=== PATIENT | female | born 1955 | race Caucasian/White ===

== ENCOUNTER → 2019-02-22 | Outpatient (CLI) | payer BC ==
--- NOTE | 2019-02-22 21:25 | Diagnostic Imaging Report ---
INDICATION: Rash in left periareolar region. COMPARISON: Correlation is made with prior mammograms from 03/01/2018 and 11/03/2016. EXAMINATION: 2D and 3D bilateral diagnostic mammography was performed. FINDINGS: Scattered fibroglandular densities are identified, bilaterally. Biopsy clips are noted in both breasts. The parenchymal pattern is stable. No mass or malignant appearing microcalcifications are seen. There are benign calcifications. Axillae are unremarkable IMPRESSION: No mammographic features suspicious for malignancy. Even so, sonographic interrogation of the area of rash in the left breast periareolar region is recommended an will be performed today. ACR BI-RADS Category 0: Incomplete. (Needs additional imaging evaluation). Result letter will be mailed to the patient. Note: At least 10% of breast cancer is not imaged by mammography. Dictated by: Dictated on workstation # [id number]
--- NOTE | 2019-02-22 21:37 | Diagnostic Imaging Report ---
INDICATION: Rash and itching in the periareolar left breast. EXAMINATION: Sonographic interrogation of the area of redness was performed. FINDINGS: No sonographic abnormality is seen. No solid or cystic mass is detected. IMPRESSION: No sonographic abnormality is identified. ACR BI-RADS Category 1: Negative. Result letter will be mailed to the patient. Note: At least 10% of breast cancer is not imaged by mammography. Dictated by: Dictated on workstation # [id number]
== END ==
LOC: RAD 13:24
PROVIDERS: ATTEND Nurse Practitioner Family
DX: L29.9 Pruritus, unspecified (principal); R21 Rash and other nonspecific skin eruption; N64.4 Mastodynia
CPT/HCPCS: 76642; 77066

== ENCOUNTER → 2022-02-25 | Outpatient (CLI) | payer BC, MEDICARE ==
--- NOTE | 2022-02-25 22:17 | Diagnostic Imaging Report ---
INDICATION: Routine screening. COMPARISON: Prior mammogram from 02/22/2019 and 03/01/2018. EXAMINATION: 2D and 3D bilateral screening mammography was performed with CAD. FINDINGS: Scattered fibroglandular densities are identified, bilaterally. A nodular density in the upper outer right breast appears increased in size when compared with prior exams. Biopsy clip in outer left breast is noted. There are benign calcifications, bilaterally. Axillae are unremarkable. IMPRESSION: Enlarging nodule in the upper outer right breast at mid to posterior depth. Additional views are recommended for further evaluation. ACR BI-RADS Category 0: Incomplete. (Needs additional imaging evaluation). Result letter will be mailed to the patient. Note: At least 10% of breast cancer is not imaged by mammography. Dictated by: Dictated on workstation # [id number]
== END ==
LOC: RAD 11:00
PROVIDERS: ATTEND Nurse Practitioner Family
DX: Z12.31 Encounter for screening mammogram for malignant neoplasm of breast (principal); N63.11 Unspecified lump in the right breast, upper outer quadrant
CPT/HCPCS: 77063; 77067

== ENCOUNTER → 2022-03-02 | Outpatient (CLI) | payer MEDICARE ==
--- NOTE | 2022-03-02 13:12 | Diagnostic Imaging Report ---
INDICATION: Right breast density. COMPARISON: Correlation is made to the diagnostic mammogram from earlier this same day and screening mammogram from 02/25/2022. FINDINGS: Sonographic interrogation of the upper outer right breast was performed. There are two cysts in the upper outer right breast, each measuring 5 to 6 mm in size. One cyst is 14 cm from the nipple and likely accounts for the mammographic density. There is also a cyst approximately 10 cm from the nipple. No solid mass is detected. IMPRESSION: Simple cyst in the upper outer right breast, likely accounting for the mammographic density. The patient may return to routine annual screening mammography. ACR BI-RADS Category 2: Benign findings. Result letter will be mailed to the patient. Note: At least 10% of breast cancer is not imaged by mammography. Dictated by: Dictated on workstation # [id number]
--- NOTE | 2022-03-02 16:33 | Diagnostic Imaging Report ---
INDICATION: Right breast density. Patient presents for additional views. COMPARISON: Correlation is made with the screening study from 02/25/2022. TECHNIQUE: Unilateral right 2D and 3D diagnostic mammography was performed. This includes spot compression CC and ML views as well as conventional 90 degree lateral views. FINDINGS: There is a persistent nodular density in the upper outer right breast at posterior depth approximately 15 cm from the nipple. This may represent a cyst or lymph node. Further evaluation with ultrasound is recommended. IMPRESSION: Persistent nodular density in the upper outer right breast at posterior depth. Further evaluation with ultrasound is recommended and will be performed today. ACR BI-RADS Category 0: Incomplete. (Needs additional imaging evaluation). Result letter will be mailed to the patient. Note: At least 10% of breast cancer is not imaged by mammography. Dictated by: Dictated on workstation # [id number]
== END ==
LOC: RAD 12:45
PROVIDERS: ATTEND Nurse Practitioner Family
DX: N60.01 Solitary cyst of right breast (principal)
CPT/HCPCS: 76642; 77065; G0279

== ENCOUNTER 2023-06-09 17:01 | Observation (INO) | payer MEDICARE ==
[~2023-06-09] VITALS: Ht 154 cm; Wt 141.0 kg
[2023-06-09] MEDS ORDERED: ORPHENADRINE 60 MG/2 ML (NORFLEX) AMP (ED ONLY) IVP STA (17:09)
[2023-06-09] MEDS ORDERED: KETOROLAC INJ 30 MG/ML VIAL IVP STA (17:09)
[2023-06-09] MEDS ORDERED: fentaNYL INJECTION 100 MCG/2 ML VIAL IVP STA (17:09)
--- NOTE | 2023-06-09 17:25 | ED Back Pain ---
General Chief Complaint: Back Problems Stated Complaint: R LOWER BACK PAIN Source of Information: Patient History of Present Illness Date Seen by Provider: Jun 09, 2023 Time Seen by Provider: 17:01 Initial Comments 67-year-old female presenting with complaints of severe low back pain radiating to her right leg. She has had this for at least the last 1 to 2 weeks. She had been seen last week in the clinic and they gave her steroid shot. She felt like the pain has been worse since Wednesday. She had bent over in the bathroom this weekend and that seemed to trigger her pain and has been worse ever since. She has a prescription for hydrocodone that they just gave her today. She took 1 of those approximately an hour prior to arrival. She denies any loss of bowel or bladder control. She feels like her low back pain is better if she has her right leg up. She has been mainly sitting in the recliner at home so that her leg is elevated. She denies any direct trauma or fall to make her back pain started. She has no allergies to medications. She states that she does not take any chronic medications. Location: Lumbar Spine Timing/Duration: 1 Week (More than a week of increasing pain) Severity: Severe Pain/Injury Location: Back, Lower Extremity (Right lower extremity) Radiation: Upper Legs (Right side down to her knee) Method of Injury: Unknown Modifying Factors: Worse With Movement Associated Symptoms: muscle spasms; No fever, No weakness, No numbness in legs/feet, No tingling in legs/feet, No sensory/motor loss; lower back pain; No loss of bladder control, No loss of bowel control Allergies and Home Medications Allergies Coded Allergies: No Known Drug Allergies (Unverified , 06/09/23) Patient Home Medication List Home Medication List Reviewed: Yes Review of Systems Constitutional: No chills, No diaphoresis, No fever EENTM: no symptoms reported Respiratory: no symptoms reported Cardiovascular: no symptoms reported Gastrointestinal: no symptoms reported Genitourinary: no symptoms reported Musculoskeletal: see HPI Skin: No change in color, No rash Psychiatric/Neurological: Denies Numbness, Denies Paresthesia Past Aqcgtnv-Tksqiu-Eayceo Hx Patient Social History Tobacco Use?: No Use of E-Cig and/or Vaping dev: No Substance use?: No Alcohol Use?: No Pt feels they are or have been: No Physical Exam Vital Signs Vital Signs - First Documented 8/9/23 17:15 Temp 36.6 Pulse 72 Resp 16 B/P (MAP) 133/75 (94) Pulse Ox 99 O2 Delivery Room Air Capillary Refill : Height, Weight, BMI Height: '" Weight: lbs. oz. 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 Norm as Tested Skin: Normal Color, Warm/Dry Progress/Results/Core Measures Results/Orders My Orders Orders - NARINDER AGUILAR MD Orphenadrine Inj (Ed Only) (Norflex Inje (06/09/23 17:09) Fentanyl Injection (Fentanyl Injection (06/09/23 17:09) Ketorolac Injection (Ketorolac Injection (06/09/23 17:09) Ct Lumbar Spine Wo (06/09/23 17:10) Ct Pelvis Wo (06/09/23 17:10) Hydromorphone Injection (Hydromorphone (06/09/23 17:51) Ed Admission (Communication) (06/09/23 18:44) Vital Signs/I&O 06/09/23 17:15 Temp 36.6 Pulse 72 Resp 16 B/P (MAP) 133/75 (94) Pulse Ox 99 O2 Delivery Room Air Progress Progress Note #1: Progress Note Potential diagnosis of sciatica, compression fracture, bulging disc, exacerbation of low back pain. Obtain CT scan of the lumbar spine and pelvis to look for acute bony abnormality. Patient has an MRI scheduled for later this month. In terms of pain try to establish a peripheral IV access and administer fentanyl 50 mcg IV x 1 for pain, Toradol 30 mg IV for pain and inflammation, Norflex 60 mg IV for muscle spasms. Progress Note #2: Time: 18:00 Progress Note Patient still complaining of pain so given Dilaudid 0.[address] scans reviewed from radiologist and they did not see any acute bony abnormality. Possibly some neuroforaminal stenosis L4-5 and L5-S1. She felt the pain was so severe that she could not get up and move around and could not go home. Will check with her doctor, Lala Noel about possible admit. [address] Noel and she states she does not do admissions any more so requested I call hospitalist. [address] Minaya as the hospitalist to admit for Dr. NOEL. I reviewed with there is a patient presentation with increasing severe low back pain with radiculopathy down the right leg since this weekend but initially started 7 to 10 days ago. She had no acute bony abnormality on the CT imaging of her lumbar or pelvic area. She was still having severe pain despite multiple doses of medication and felt that she could not walk her get around at home. She was able to stand to do a transfer from the bed to the wheelchair but was continued to have pain. It did seem to be better after getting a dose of Dilaudid. Will admit as an observation patient for her severe back pain. Diagnostic Imaging Diagonstic Imaging: CT Plain Films/CT/US/NM/MRI: pelvis Comments NAME: ROMEL PERR[facility] REC#: [id number] PT STATUS: REG ER : 1955 PHYSICIAN: NARINDER AGUILAR MD ADMIT DATE: 06/09/23/ER FS Draft Date of Exam:06/09/23 CT PELVIS WO PROCEDURE: CT pelvis without contrast. TECHNIQUE: Multiple contiguous axial images were obtained through the pelvis without the use of intravenous contrast. Sagittal and coronal reformations were performed. Auto Exposure Controls were utilized during the CT exam to meet ALARA standards for radiation dose reduction. INDICATION: Right pelvic pain and radiculopathy. COMPARISON: None. FINDINGS: Mild degenerative changes in both hips. No fracture or malalignment. No fluid collection or contusion. No acute findings in the visualized pelvic contents. IMPRESSION: No acute CT findings in the pelvis. Dictated on workstation # [id number] Dict: 06/09/231742 Trans: 06/09/231748 [facility] [id number] Interpreted by: CAM MANRIQUEZ MD Electronically signed by: Reviewed: Reviewed by Me Diagonstic Imaging: CT Plain Films/CT/US/NM/MRI: other (Lumbar spine) Comments [facility] [place], [place] NAME: ROMEL PERRY [facility] REC#: [id number] PT STATUS: REG ER : 1955 PHYSICIAN: NARINDER AGUILAR MD ADMIT DATE: 06/09/23/ER FS Draft Date of Exam:06/09/23 CT LUMBAR SPINE WO EXAMINATION: CT lumbar spine without contrast. TECHNIQUE: Multiple contiguous axial images were obtained through the lumbar spine without the use of intravenous contrast. Sagittal and coronal reformations were then performed. All CT scans use one or more of the following dose optimizing techniques: automated exposure control, MA and/or KvP adjustment based on patient size and exam type or iterative reconstruction. HISTORY: Right sided pain with radiculopathy right leg COMPARISON: None available. FINDINGS: The alignment of the lumbar spine is normal. Vertebral body heights are normal and no fracture is seen. There is multilevel facet hypertrophy. Disc heights are normal. There is mild multilevel lumbar spondylosis. There may be some neuroforaminal stenosis at L4-L5 and L5-S1, bilaterally. Evaluation of the central canal and neuroforamina are suboptimal on a noncontrast CT. Limited views of the abdomen and pelvis show no soft tissue abnormality. The aorta is normal. IMPRESSION: Degenerative changes of the lumbar spine without acute osseous abnormality. Dictated on workstation # [id number] Dict: 06/09/23 1741 Trans: 06/09/23 1748 [facility] [id number] Interpreted by: ANEL DORADO DO Electronically signed by: Reviewed: Reviewed by Me Departure Communication (Admissions) Time/Spoke to Admitting Phy: 18:[address] Minaya as the hospitalist to admit for Dr. NOEL. I reviewed with there is a patient presentation with increasing severe low back pain with radiculopathy down the right leg since this weekend but initially started 7 to 10 days ago. She had no acute bony abnormality on the CT imaging of her lumbar or pelvic area. She was still having severe pain despite multiple doses of medication and felt that she could not walk her get around at home. She was able to stand to do a transfer from the bed to the wheelchair but was continued to have pain. It did seem to be better after getting a dose of Dilaudid. Will admit as an observation patient for her severe back pain. Impression Primary Impression: Acute low back pain with right-sided sciatica Qualified Codes: M54.41 - Lumbago with sciatica, right side Additional Impressions: Lumbar back pain with radiculopathy affecting right lower extremity Degenerative disc disease, lumbar Disposition: 30 STILL A PATIENT Condition: Stable Admissions Decision to Admit Reason: Admit from ER (General) Decision to Admit/Date: Jun 09, 2023 Time/Decision to Admit Time: 18:30 Departure-Patient Inst. Referrals: LALA NOEL MD (PCP/Family) Primary Care Physician NARINDER AGUILAR MD Jun 09, 2023 17:25
--- NOTE | 2023-06-09 17:48 | Diagnostic Imaging Report ---
EXAMINATION: CT lumbar spine without contrast. TECHNIQUE: Multiple contiguous axial images were obtained through the lumbar spine without the use of intravenous contrast. Sagittal and coronal reformations were then performed. All CT scans use one or more of the following dose optimizing techniques: automated exposure control, MA and/or KvP adjustment based on patient size and exam type or iterative reconstruction. HISTORY: Right sided pain with radiculopathy right leg COMPARISON: None available. FINDINGS: The alignment of the lumbar spine is normal. Vertebral body heights are normal and no fracture is seen. There is multilevel facet hypertrophy. Disc heights are normal. There is mild multilevel lumbar spondylosis. There may be some neuroforaminal stenosis at L4-L5 and L5-S1, bilaterally. Evaluation of the central canal and neuroforamina are suboptimal on a noncontrast CT. Limited views of the abdomen and pelvis show no soft tissue abnormality. The aorta is normal. IMPRESSION: Degenerative changes of the lumbar spine without acute osseous abnormality. Dictated by: Dictated on workstation # [id number]
--- NOTE | 2023-06-09 17:50 | Diagnostic Imaging Report ---
PROCEDURE: CT pelvis without contrast. TECHNIQUE: Multiple contiguous axial images were obtained through the pelvis without the use of intravenous contrast. Sagittal and coronal reformations were performed. Auto Exposure Controls were utilized during the CT exam to meet ALARA standards for radiation dose reduction. INDICATION: Right pelvic pain and radiculopathy. COMPARISON: None. FINDINGS: Mild degenerative changes in both hips. No fracture or malalignment. No fluid collection or contusion. No acute findings in the visualized pelvic contents. IMPRESSION: No acute CT findings in the pelvis. Dictated by: Dictated on workstation # [id number]
[2023-06-09] MEDS ORDERED: HYDROmorphone INJECTION 2 MG/ML VIAL IV STA (17:51)
[2023-06-09 20:03] VITALS: BP 147/70
[2023-06-09 20:15] VITALS: BP 147/70
[2023-06-09] MEDS ORDERED: ONDANSETRON 4 MG (ZOFRAN) ORAL DISSOLVE TAB PO PRN (20:15)
[2023-06-09] MEDS ORDERED: ANTACID SUSPENSION 30 ML UDC PO PRN (20:15)
[2023-06-09] MEDS ORDERED: MELATONIN 3 MG TABLET PO PRN (20:15)
[2023-06-09] MEDS ORDERED: BISACODYL 10 MG SUPPOSITORY PR PRN (20:15)
[2023-06-09] MEDS ORDERED: diphenhydrAMINE INJ 50 MG/ML VIAL IVP PRN (20:15)
[2023-06-09] MEDS ORDERED: polyethylene glycoL POWDER 17 GM (MIRALAX) PACK PO PRN (20:15)
[2023-06-09] MEDS ORDERED: diphenhydrAMINE 25 MG TABLET PO PRN (20:15)
[2023-06-09] MEDS ORDERED: KETOROLAC INJ 30 MG/ML VIAL IVP PRN (20:15)
[2023-06-09] MEDS ORDERED: ONDANSETRON 4 MG/2 ML (SDV) Z0FRAN IV PRN (20:15)
[2023-06-09] MEDS ORDERED: ACETAMINOPHEN 325 MG TABLET PO PRN (20:15)
[2023-06-09] MEDS ORDERED: LACTULOSE SYRUP 10GM/15ML 30ML UDC PO PRN (20:15)
[2023-06-09] MEDS ORDERED: CYCLOBENZAPRINE 10 MG TABLET PO PRN (20:15)
[2023-06-09] MEDS ORDERED: RT-Ipratropium/Albuterol NEB 3 ML VIAL INH PRN (20:30)
[2023-06-09] MEDS: DOCUSATE SODIUM 100 MG CAPSULE PO SCH (21:54)
[2023-06-09] MEDS: HYDROmorphone INJECTION 2 MG/ML VIAL IV PRN (22:00)
[2023-06-09] MEDS: dexAMETHasone INJ 4 MG/ML SDV IV SCH (22:00)
[2023-06-09] MEDS: oxyCODONE IMMEDIATE RELEASE 5 MG TABLET PO PRN (22:01)
[2023-06-09 23:43] VITALS: BP 156/81
[2023-06-10] VITALS (7 sets, daily range): BP systolic 130–180; BP diastolic 62–92
[2023-06-10] MEDS: HYDROmorphone INJECTION 2 MG/ML VIAL IV PRN ×2 (02:52→07:06)
[2023-06-10] MEDS: oxyCODONE IMMEDIATE RELEASE 5 MG TABLET PO PRN ×2 (02:52→07:05)
--- NOTE | 2023-06-10 05:55 | History & Physical ---
History of Present Illness HPI/Chief Complaint Chief complaint: Intractable lumbar radiculopathy unable to ambulate HPI: This is a 67-year-old female clinic patient of Dr. Noel who has a past medical history of low back pain who presented from [facility] due to intractable right-sided lumbar spine radiculopathy pain unable to ambulate in such severe pain she could no longer manage at home. She has been placed on multiple rounds of steroids and narcotics without resolution. She was planning on getting MRI done next week. Currently she is doing much better after IV steroids and muscle relaxants and narcotics. Source: patient Exam Limitations: no limitations Date Seen 06/10/23 Time Seen by a Provider: 11:00 Attending Physician Veena Noel MD PCP Admitting Physician: Viry Minaya DO Attending Physician: Viry Minaya DO Referring Physician Date of Admission Jun 09, 2023 at 20:00 Home Medications & Allergies Home Medications Reviewed patient Home Medication Reconciliation performed by pharmacy medication reconciliations tax technician and/or nursing. Patients Allergies have been reviewed. Allergies Allergies Coded Allergies No Known Drug Allergies (Unverified06/09/23) Past Cauormo-Alflyk-Oslsap Hx Past Med/Social Hx: Reviewed Nursing Past Med/Soc Hx, Reviewed and Corrections made Patient Social History Marrital Status: Employed/Student: retired Alcohol Use: Denies Use Smoking Status: Never a Smoker Past Medical History Musculoskeletal: Chronic Back Pain Review of Systems Constitutional: see HPI, malaise, weakness Gastrointestinal: constipation Musculoskeletal: back pain, muscle cramps, muscle weakness Physical Exam Physical Exam Vital Signs Vital Signs - First Documented 06/09/23 17:15 Temp 36.6 Pulse 72 Resp 16 B/P (MAP) 133/75 (94) Pulse Ox 99 O2 Delivery Room Air Capillary Refill : Less Than 3 Seconds Height, Weight, BMI Height: '" Weight: lbs. oz. 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 Assessment/Plan Admission Diagnosis Assessment: Intractable back pain with right-sided lumbar radiculopathy Constipation Unable to ambulate Morbid obesity BMI 59 Plan: IV steroids Muscle relaxants Narcotics PT OT Admission Status: Observation VIRY MINAYA DO Jun 10, 2023 05:55
[2023-06-10 06:23] LABS: BASOPHILS % (AUTO) 0 % (0-10); EOSINOPHILS % (AUTO) 0 % (0-10); HEMATOCRIT 44 % (35-52); HEMOGLOBIN 14.3 g/dL (11.5-16.0); LYMPHOCYTES # (AUTO) 0.7 10^3/uL (1.0-4.0); LYMPHOCYTES % (AUTO) 7 % (12-44); MEAN CORPUSCULAR HEMOGLOBIN 30 pg (25-34); MEAN CORPUSCULAR HGB CONC 32 g/dL (32-36); MEAN CORPUSCULAR VOLUME 93 fL (80-99); MONOCYTES # (AUTO) 0.1 10^3/uL (0.0-1.0); MONOCYTES % (AUTO) 1 % (0-12); NEUTROPHILS # (AUTO) 8.3 10^3/uL (1.8-7.8); NEUTROPHILS % (AUTO) 91 % (42-75); PLATELET COUNT 287 10^3/uL (130-400); WHITE BLOOD COUNT 9.1 10^3/uL (4.3-11.0)
[2023-06-10 06:36] LABS: BILIRUBIN,TOTAL 0.4 MG/DL (0.1-1.0); CALCIUM 9.4 MG/DL (8.5-10.1); CREATININE SERUM 0.83 MG/DL (0.60-1.30); POTASSIUM 4.6 MMOL/L (3.6-5.0); TOTAL PROTEIN 7.1 GM/DL (6.4-8.2)
[2023-06-10 06:40] LABS: BAND NEUTROPHILS 0 %; EOSINOPHILS % (MANUAL) 0 %; LYMPHOCYTES % (MANUAL) 8 %; MONOCYTES % (MANUAL) 0 %; NEUTROPHILS % (MANUAL) 92 %; RBC MORPH NORMAL
[2023-06-10] MEDS: dexAMETHasone INJ 4 MG/ML SDV IV SCH ×2 (09:07→20:03)
[2023-06-10] MEDS: DOCUSATE SODIUM 100 MG CAPSULE PO SCH ×2 (09:07→20:03)
[2023-06-10] MEDS: ENOXAPARIN 60 MG/0.6 ML SYRINGE SC SCH ×2 (09:08→20:03)
--- NOTE | 2023-06-10 11:51 | Physical Therapy Evaluation ---
PT Evaluation-General Medical Diagnosis Admission Date Jun 09, 2023 at 20:00 Medical Diagnosis: back pain with right LE sciatica Onset Date: Jun 09, 2023 Therapy Diagnosis Therapy Diagnosis: debility Precautions Precautions/Isolations: Standard Precautions Weight Bear Status Right Lower Extremity: Right Weight Bearing/Tolerated Left Lower Extremity: Left Weight Bearing/Tolerated Referral Physician: Rei Reason for Referral: Evaluation/Treatment Medical History Current History ER secondary to back pain 7-10 days Reviewed History: Yes Social History Home: Single Level Current Living Status: Spouse Prior Prior Level of Function SCALE: Activities may be completed with or without assistive devices. 9-Gyvnusmgjg-czeswwj completes the activity by him/herself with no assistance from a helper. 5-Set-up or Clean-up Assistance-helper sets up or cleans up; patient completes activity. [place] assists only prior to or following the activity. 4-Supervision or Touching Assistance-helper provides verbal cues and/or touching/steadying and/or contact guard assistance as patient completes activity. Assistance may be provided throughout the activity or intermittently. 3-Partial/Moderate Assistance-helper does LESS THAN HALF the effort. [place] lifts, holds or supports trunk or limbs, but provides less than half the effort. 2-Substantial/Maximal Assistance-helper does MORE THAN HALF the effort. [place] lifts or holds trunk or limbs and provides more than half the effort. 6-Xxqixktic-ctxorp does ALL the effort. Patient does none of the effort to complete the activity. Or, the assistance of 2 or more helpers is required for the patient to complete the activity. If activity was not attempted, code reason: 7-Patient Refused. 9-Not Applicable-not attempted and the patient did not perform the activity before the current illness, exacerbation or injury. 10-Not Attempted due to Environmental Limitations-(lack of equipment, weather restraints, etc.). 88-Not Attempted due to Medical Conditions or Safety Concerns. Bed Mobility: 6 Transfers (B,C,W/C): 6 Gait: 6 Indoor Mobility (Ambulation): Independent Prior Devices Use: None PT Evaluation-Current Subjective Patient denies back pain and right LE pain. States she is "woozy" from all the pain medication. Pain Numeric Pain Scale: 0-No Pain Location: No Pain Reported Objective Patient Orientation: Normal For Age ROM/Strength ROM Lower Extremities bilateral LE WFL Strength Lower Extremities 4/5 grossly bilateral LE all planes Integumentary/Posture Bowel Incontinence: No Bladder Incontinence: No Posture WFL Neuromuscular (Tone, Coordination, Reflexes) grossly intact Sensory Vision: Wears Glasses Hearing: Functional Transfers Sit to Lying (QC): 6 Lying to Sitting/Side of Bed(Q: 6 Sit to Stand (QC): 6 Toilet Transfer (QC): 6 Gait Mode of Locomotion: Walk Anticipated Mode of Locomotion: Walk Walk 10 feet (QC): 6 Walk 50 ft with 2 Turns(QC): 6 Walk 150 ft (QC): 6 Distance: 200' Gait Assistive Device: FWW Comments/Gait Description very low, steady gait sequence Balance Sitting Static: Normal Sitting Dynamic: Normal Standing Static: Normal Standing Dynamic: Normal Assessment/Needs Patient currently denies pain and is independent with all gross motor skills. No skilled PT indicated. Rehab Potential: Fair PT Plan Treatment/Plan Treatment Plan: Discontinue PT Treatment Duration: Jun 10, 2023 Frequency: 1 time per week Estimated Hrs Per Day: .25 hour per day Patient and/or Family Agrees t: Yes Time Time In: 1025 Time Out: 1050 DATE: Jun 10, 2023 Total Billed Treatment Time: 25 Total Billed Treatment 1 visit EVModC 10 min FA 15 min ETIENNE GRIMES PT Jun 10, 2023 11:51
[2023-06-10] MEDS ORDERED: SENNA W/DOCUSATE (SENOKOT S) TABLET PO ONE (12:00)
[2023-06-10] MEDS ORDERED: LACTULOSE SYRUP 10GM/15ML 30ML UDC PO ONE (12:00)
[2023-06-10] MEDS ORDERED: ACHD5005 PO (15:01)
[2023-06-10] MEDS ORDERED: NAPR220T66 PO (15:01)
[2023-06-11 04:59] VITALS: BP_SYST 148; BP_SYST 166; BP_DIAS 67; BP_DIAS 68
[2023-06-11 05:22] LABS: BASOPHILS % (AUTO) 0 % (0-10); EOSINOPHILS % (AUTO) 0 % (0-10); HEMATOCRIT 45 % (35-52); HEMOGLOBIN 14.2 g/dL (11.5-16.0); LYMPHOCYTES # (AUTO) 0.9 10^3/uL (1.0-4.0); LYMPHOCYTES % (AUTO) 7 % (12-44); MEAN CORPUSCULAR HEMOGLOBIN 29 pg (25-34); MEAN CORPUSCULAR HGB CONC 32 g/dL (32-36); MEAN CORPUSCULAR VOLUME 92 fL (80-99); MEAN PLATELET VOLUME 11.1 fL (9.0-12.2); MONOCYTES # (AUTO) 0.4 10^3/uL (0.0-1.0); MONOCYTES % (AUTO) 3 % (0-12); NEUTROPHILS # (AUTO) 11.9 10^3/uL (1.8-7.8); NEUTROPHILS % (AUTO) 89 % (42-75); PLATELET COUNT 295 10^3/uL (130-400); WHITE BLOOD COUNT 13.3 10^3/uL (4.3-11.0)
[2023-06-11 05:31] LABS: ALBUMIN 3.9 GM/DL (3.2-4.5); POTASSIUM 4.7 MMOL/L (3.6-5.0)
[2023-06-11 05:33] LABS: CALCIUM 9.7 MG/DL (8.5-10.1)
[2023-06-11 05:34] LABS: TOTAL PROTEIN 7.1 GM/DL (6.4-8.2)
[2023-06-11 05:35] LABS: BILIRUBIN,TOTAL 0.4 MG/DL (0.1-1.0)
[2023-06-11 05:37] LABS: CREATININE SERUM 0.79 MG/DL (0.60-1.30)
[2023-06-11 07:51] VITALS: BP 152/71
[2023-06-11] MEDS: ENOXAPARIN 60 MG/0.6 ML SYRINGE SC SCH (08:32)
[2023-06-11] MEDS: dexAMETHasone INJ 4 MG/ML SDV IV SCH (08:32)
[2023-06-11] MEDS: DOCUSATE SODIUM 100 MG CAPSULE PO SCH (08:32)
[2023-06-11 12:01] VITALS: BP 126/90
[2023-06-11] MEDS ORDERED: OXC5T PO (12:23)
[2023-06-11] MEDS ORDERED: CYCL10TA25 PO (12:23)
[2023-06-11] MEDS ORDERED: PRED10TA22 PO (12:23)
--- NOTE | 2023-06-11 12:24 | Discharge Summary ---
Diagnosis/Chief Complaint Date of Admission Jun 09, 2023 at 20:00 Date of Discharge Discharge Date: Jun 11, 2023 Discharge Diagnosis Assessment: Intractable back pain with right-sided lumbar radiculopathy Constipation Unable to ambulate Morbid obesity BMI 59 Plan: IV steroids Muscle relaxants Narcotics PT OT Discharge Summary Discharge Physical Examination Allergies: Coded Allergies: No Known Drug Allergies (Unverified , 06/09/23) Vitals & I&Os Vital Signs Date Time Temp Pulse Resp B/P (MAP) Pulse Ox O2 Delivery O2 Flow Rate FiO2 06/11/23 14:05 35.8 68 19 126/90 97 Room Air General Appearance: Alert, Oriented X3, Cooperative Respiratory: Clear to Auscultation Cardiovascular: Regular Rate Psych/Mental Status: Mental Status NL Hospital Course Was the Problem List Reviewed?: Yes Hospital course: Patient had an uneventful hospital course due to severe refractory back pain from right sided radiculopathy. Patient was placed in observation and given IV steroids and IV narcotics. She returned back to her baseline function and she will have MRI and close follow-up with her PCP next we ek. Labs (last 24 hrs) Laboratory Tests 06/10/23 05:52: White Blood Count 9.1, Red Blood Count 4.80, Hemoglobin 14.3, Hematocrit 44, Mean Corpuscular Volume 93, Mean Corpuscular Hemoglobin 30, Mean Corpuscular Hemoglobin Concent 32, Red Cell Distribution Width 14.8H, Platelet Count 287, Mean Platelet Volume 11.0, Immature Granulocyte % (Auto) 0, Neutrophils (%) (Auto) 91H, Lymphocytes (%) (Auto) 7L, Monocytes (%) (Auto) 1, Eosinophils (%) (Auto) 0, Basophils (%) (Auto) 0, Neutrophils # (Auto) 8.3H, Lymphocytes # (Auto) 0.7L, Monocytes # (Auto) 0.1, Eosinophils # (Auto) 0.0, Basophils # (Auto) 0.0, Immature Granulocyte # (Auto) 0.0, Neutrophils % (Manual) 92, Lymphocytes % (Manual) 8, Monocytes % (Manual) 0, Eosinophils % (Manual) 0, Band Neutrophils 0, Blood Morphology Comment NORMAL, Sodium Level 137, Potassium Level 4.6, Chloride Level 104, Carbon Dioxide Level 24, Anion Gap 9, Blood Urea Nitrogen 20H, Creatinine 0.83, Estimat Glomerular Filtration Rate 77, BUN/Creatinine Ratio 24, Glucose Level 148H, Calcium Level 9.4, Corrected Calcium 9.4, Total Bilirubin 0.4, Aspartate Amino Transf (AST/SGOT) 15, Alanine Aminotransferase (ALT/SGPT) 21, Alkaline Phosphatase 119, Total Protein 7.1, Albumin 4.0 06/11/23 05:15: White Blood Count 13.3H, Red Blood Count 4.83, Hemoglobin 14.2, Hematocrit 45, Mean Corpuscular Volume 92, Mean Corpuscular Hemoglobin 29, Mean Corpuscular Hemoglobin Concent 32, Red Cell Distribution Width 14.8H, Platelet Count 295, Mean Platelet Volume 11.1, Immature Granulocyte % (Auto) 0, Neutrophils (%) (Auto) 89H, Lymphocytes (%) (Auto) 7L, Monocytes (%) (Auto) 3, Eosinophils (%) (Auto) 0, Basophils (%) (Auto) 0, Neutrophils # (Auto) 11.9H, Lymphocytes # (Auto) 0.9L, Monocytes # (Auto) 0.4, Eosinophils # (Auto) 0.0, Basophils # (Auto) 0.0, Immature Granulocyte # (Auto) 0.1, Sodium Level 138, Potassium Level 4.7, Chloride Level 106, Carbon Dioxide Level 23, Anion Gap 9, Blood Urea Nitrogen 17, Creatinine 0.79, Estimat Glomerular Filtration Rate 82, BUN/Creatinine Ratio 22, Glucose Level 137H, Calcium Level 9.7, Corrected Calcium 9.8, Total Bilirubin 0.4, Aspartate Amino Transf (AST/SGOT) 14, Alanine Aminotransferase (ALT/SGPT) 19, Alkaline Phosphatase 100, Total Protein 7.1, Albumin 3.9 Pending Labs Laboratory Tests 06/10/23 05:52: White Blood Count 9.1, Red Blood Count 4.80, Hemoglobin 14.3, Hematocrit 44, Mean Corpuscular Volume 93, Mean Corpuscular Hemoglobin 30, Mean Corpuscular Hemoglobin Concent 32, Red Cell Distribution Width 14.8, Platelet Count 287, Mean Platelet Volume 11.0, Immature Granulocyte % (Auto) 0, Neutrophils (%) (Auto) 91, Lymphocytes (%) (Auto) 7, Monocytes (%) (Auto) 1, Eosinophils (%) (Auto) 0, Basophils (%) (Auto) 0, Neutrophils # (Auto) 8.3, Lymphocytes # (Auto) 0.7, Monocytes # (Auto) 0.1, Eosinophils # (Auto) 0.0, Basophils # (Auto) 0.0, Immature Granulocyte # (Auto) 0.0, Neutrophils % (Manual) 92, Lymphocytes % (Manual) 8, Monocytes % (Manual) 0, Eosinophils % (Manual) 0, Band Neutrophils 0, Blood Morphology Comment NORMAL, Sodium Level 137, Potassium Level 4.6, Chloride Level 104, Carbon Dioxide Level 24, Anion Gap 9, Blood Urea Nitrogen 20, Creatinine 0.83, Estimat Glomerular Filtration Rate 77, BUN/Creatinine Ratio 24, Glucose Level 148, Calcium Level 9.4, Corrected Calcium 9.4, Total Bilirubin 0.4, Aspartate Amino Transf (AST/SGOT) 15, Alanine Aminotransferase (ALT/SGPT) 21, Alkaline Phosphatase 119, Total Protein 7.1, Albumin 4.0 06/11/23 05:15: White Blood Count 13.3, Red Blood Count 4.83, Hemoglobin 14.2, Hematocrit 45, Mean Corpuscular Volume 92, Mean Corpuscular Hemoglobin 29, Mean Corpuscular Hemoglobin Concent 32, Red Cell Distribution Width 14.8, Platelet Count 295, Mean Platelet Volume 11.1, Immature Granulocyte % (Auto) 0, Neutrophils (%) (Auto) 89, Lymphocytes (%) (Auto) 7, Monocytes (%) (Auto) 3, Eosinophils (%) (Auto) 0, Basophils (%) (Auto) 0, Neutrophils # (Auto) 11.9, Lymphocytes # (Auto) 0.9, Monocytes # (Auto) 0.4, Eosinophils # (Auto) 0.0, Basophils # (Auto) 0.0, Immature Granulocyte # (Auto) 0.1, Sodium Level 138, Potassium Level 4.7, Chloride Level 106, Carbon Dioxide Level 23, Anion Gap 9, Blood Urea Nitrogen 17, Creatinine 0.79, Estimat Glomerular Filtration Rate 82, BUN/Creatinine Ratio 22, Glucose Level 137, Calcium Level 9.7, Corrected Calcium 9.8, Total Bilirubin 0.4, Aspartate Amino Transf (AST/SGOT) 14, Alanine Aminotransferase (ALT/SGPT) 19, Alkaline Phosphatase 100, Total Protein 7.1, Albumin 3.9 Discharge Home Medications: Active Scripts Active Prednisone 10 Mg Tab.ds.pk 10 Mg PO DAILY Take 6 tabs(60mg)daily,decrease by 1 tab(10MG)daily. Oxyir Tablet (Oxycodone HCl) 5 Mg Tab 10 Mg PO Q4H PRN Cyclobenzaprine HCl 10 Mg Tablet 10 Mg PO Q6H PRN Reported Aleve (Naproxen Sodium) 220 Mg Tablet 220 Mg PO Q12H PRN Instructions to patient/family Please see electronic discharge instructions given to patient. VISHNU TALBOT DO Jun 11, 2023 12:24
[2023-06-11 14:05] VITALS: BP 126/90
== END 2023-06-11 12:22 | disposition home or self-care (01) ==
LOC: EDUNIT# 17:01 → ER FS 17:03 → 4TH 20:00 → UNDOADMOB 20:00 → 4TH 20:02 → UNDODISOB 06-11 12:22
PROVIDERS: ADMIT Internal Medicine; ATTEND Internal Medicine
DX: M54.31 Sciatica, right side (principal); M54.16 Radiculopathy, lumbar region; K59.00 Constipation, unspecified; E66.01 Morbid (severe) obesity due to excess calories; Z68.43 Body mass index [BMI] 50.0-59.9, adult
CPT/HCPCS: 36415; 72131; 72192; 80053; 85007; 85025; 85027; 94760; 96372; 96376; G0378

== ENCOUNTER → 2023-08-18 | Outpatient (CLI) | payer MEDICARE ==
[~2023-08-18] MED LIST: ACHD5005 PO; CYCL10TA25 PO; NAPR220T66 PO; OXC5T PO; PRED10TA22 PO
--- NOTE | 2023-08-18 15:21 | Diagnostic Imaging Report ---
INDICATION: Routine screening. Comparison is made with prior mammogram from 02/25/2022 and 02/22/2019. 2-D and 3-D bilateral screening mammography was performed with CAD. Scattered fibroglandular densities are identified bilaterally. The parenchymal pattern is stable. There are biopsy marker clips in both breasts. There are benign calcifications present. No spiculated mass or malignant-appearing microcalcifications are seen. Axillae are unremarkable. IMPRESSION: No mammographic features suspicious for malignancy are identified. ACR BI-RADS Category 2: Benign findings. Result letter will be mailed to the patient. Note: At least 10% of breast cancer is not imaged by mammography. BI-RADS Category 2 Dictated by: Dictated on workstation # [id number]
== END ==
LOC: RAD 10:10
PROVIDERS: ATTEND Family Medicine
DX: Z12.31 Encounter for screening mammogram for malignant neoplasm of breast (principal)
CPT/HCPCS: 77063; 77067